=== PATIENT | female | born 2000 | race Caucasian/White ===

== ENCOUNTER 2018-10-20 12:54 | Emergency (ER) | payer OTHER ==
--- NOTE | 2018-10-20 13:59 | EDPHY ---
General Time Seen by Provider: 10/20/18 13:52 Narrative: CHIEF COMPLAINT: Hand laceration HISTORY OF PRESENT ILLNESS: Patient presents to emergency department with complaints of hand laceration. She states "my machine stitcher blew up."This happened just prior to arrival. The dorsum of the right hand. Moderately painful at rest. Worse with palpation movement. Radiates into the forearm. No numbness or tingling. No weakness. Difficulty been or straightening the fingers. No glass. No other associated complaints or modifying factors. TIME OF INJURY: Less than 1 hr ago TETANUS STATUS: Up-to-date MEDICAL/SURGICAL/SOCIAL HISTORY: Uncomplicated. Right-hand dominant. REVIEW OF SYSTEMS: Ten systems reviewed and are negative unless otherwise noted in the HPI EXAMINATION: Vitals: Triage VS reviewed General Appearance: Alert, no distress Head: normocephalic, atraumatic Cardiovascular: Pulses normal throughout. Good signs of perfusion the right upper extremity. Brisk cap refill Neurological: A&O, light and 2 point sensory symmetric, ocean transportation intermediary and interossei strength symmetric Skin: Warm and dry, no rash. There is a complex laceration to the dorsum of the right hand overlying the 2nd and just adjacent to the 3rd MCP joint. There is exposure of the extensor digitorum without laceration. There is exposure of the neck of the 2nd metacarpal without obvious fracture. Extremities: Tenderness overlying right hand area of laceration. She has full range of motion including extension and both flexors of all fingers on the right hand. No pulsatile bleeding foreign body. DIFFERENTIAL DIAGNOSES: Including but not limited to laceration, laceration complication, laceration foreign body, laceration with deep tissue injury MDM: 2:00 p.m. Injury to the dorsum of the right hand over the 2nd and 3rd MCP joint. There is exposure of the extensor digitorum. I do not appreciate any full-thickness injury as she does retain extension of the hand and fingers. Injury has been anesthetized. Proceed with irrigation, x-ray and re-evaluation. 3:00 p.m. Complex laceration has been repaired without difficulty. I discussed the x-ray findings with Dr. Holliday. I have discussed the case with Dr. Avery. She will be discharged home with oral Keflex for the possible occult fracture. She has been placed in a splint due to the fracture. She has mandatory follow up with hand surgeon. We discussed ED precautions. I have answered all her questions. Discharged home stable condition. PROCEDURE: Laceration repair Consent: Verbal Location: Dorsum of the right hand Length of repair: 4 cm, stellate Complexity: Complex Layer involvement: Single Anesthesia: Local. 0.5% Marcaine without epinephrine, Irrigation: Extensive Debridement: 10 mL none Procedure description: Following good anesthesia, the wound was copiously irrigated. Wound bed was explored with a sterile glove, and there is no foreign body noted. There is exposure of the extensor digitorum without injury to it. Wound borders were approximated well with good hemostasis. Tolerated well without complication. Suture/Staple material: 4-0 Prolene, 7 simple interrupted sutures. Wound care: Routine as discussed Suture/Staple removal: 10 Days SUPERVISION: Patient was independently examined, but I discussed the case with my secondary supervising physician Dr. Avery ED Precautions: Worsening pain. Erythema, edema, cyanosis, pallor, paresthesia or anesthesia. - Diagnostics Imaging Results: Imaging Impressions Hand X-Ray 10/20/18 13:59 Impression: Nondisplaced fracture of the head of the second metacarpal versus artifact from summation of soft tissue injury. - History Smoking Status: Never smoked - Objective Vital Signs: Initial Vital Signs Temperature (C) 98.4 F 10/20/18 13:21 Heart Rate 92 10/20/18 13:21 Respiratory Rate 17 10/20/18 13:21 Blood Pressure 125/88 H 10/20/18 13:21 O2 Sat (%) 99 10/20/18 13:21 O2 Delivery Mode Room Air Allergies/Adverse Reactions: amoxicillin Allergy (Verified 10/20/18 13:20) Home Medications: Medication Instructions Recorded Cephalexin [Keflex (*)] 500 mg PO QID #28 cap 10/20/18 oxyCODONE HCL/ACETAMINOPHEN 1 each PO Q4-6PRN PRN 11 Days #20 10/20/18 [Percocet 5-325 mg Tablet] tablet Departure - Departure Disposition: Home, Routine, Self-Care Clinical Impression: Hand laceration Qualifiers: Encounter type: initial encounter Foreign body presence: without foreign body Laterality: right Qualified Code(s): S61.411A - Laceration without foreign body of right hand, initial encounter Fracture of metacarpal of right hand, open Qualifiers: Encounter type: initial encounter Metacarpal bone: second Metacarpal location: neck Fracture alignment: nondisplaced Qualified Code(s): S62.360B - Nondisplaced fracture of neck of second metacarpal bone, right hand, initial encounter for open fracture Condition: Good Instructions: Care For Your Stitches (ED), Laceration (ED), Hand Fracture (ED) Additional Instructions: 1. Keep your splint in place and change the dressing once daily 2. Keep the wound covered while showering for the next 3 days 3. Daily wound care as discussed 4. Return here for suture removal in 7-10 days 5. Return here for signs of infection as discussed including warmth, redness, fever, drainage from the site 6. return here for increasing pain surrounding the laceration 7. Do not submerge the wound in any water, hot tub, swimming pool until sutures removed Referrals: Yair Hutchison MD [Medical Doctor] - As per Instructions Prescriptions: Cephalexin [Keflex (*)] 500 mg PO QID #28 cap oxyCODONE HCL/ACETAMINOPHEN [Percocet 5-325 mg Tablet] 1 each PO Q4-6PRN PRN 11 Days #20 tablet PRN Reason: Pain, Breakthrough
[2018-10-20 15:16] VITALS: BP 123/91
== END 2018-10-20 15:14 | disposition home or self-care (01) ==
PROC: 0HQDXZZ Repair Right Lower Arm Skin, External Approach (ICD-10-PCS; principal; 2018-10-20)
PROC: 2W3EX1Z Immobilization of Right Hand using Splint (ICD-10-PCS; principal; 2018-10-20)
DX: S61.411A Laceration without foreign body of right hand, initial encounter (principal); S62.36 Nondisplaced fracture of neck of other metacarpal bone; W29.0XXA Contact with powered kitchen appliance, initial encounter; Z88.0 Allergy status to penicillin